=== PATIENT | male | born 1990 | race Two or more races ===

== ENCOUNTER 2023-12-04 16:31 | Inpatient (IN) | payer OTHER ==
[~2023-12-04] VITALS: Ht 182.9 cm; Wt 86.2 kg
[2023-12-04] MEDS ORDERED: RINGERS SOLUTION,LACTATED 1,000 ML IV STA (17:30)
[2023-12-04 17:53] LABS: HEMATOCRIT 43.4 % (39.0-48.0); HEMOGLOBIN 14.9 g/dL (13-16.00); MEAN CELL VOLUME 89.3 fL (80.0-100.00); MEAN CORPUSCULAR HEMOGLOBIN 30.6 pg (27.00-32.0); MEAN CORPUSCULAR HGB CONC 34.3 g/dl (32.0-36.0); PLATELET COUNT 257 K/uL (150-450); RED BLOOD COUNT 4.87 M/uL (4.00-6.00); RED CELL DISTRIBUTION WIDTH 13.3 % (11.5-14.5)
[2023-12-04 18:28] LABS: INR 1.03; PARTIAL THROMBOPLASTIN TIME 29.6 SECONDS (22.0-34.0); PROTHROMBIN TIME 10.8 SECONDS (9.0-11.5)
[2023-12-04 18:34] LABS: ALBUMIN 3.8 gm/dL (3.4-5.0); BILIRUBIN TOTAL 0.28 mg/dL (0.3-1.2); CALCIUM 9.3 mg/dL (8.5-10.1); GFR 85.03; GLOBULINA 3.6 G/DL (2.4-3.5); POTASSIUM 3.96 mEq/L (3.5-5.1); TOTAL PROTEIN 7.4 gm/dL (6.4-8.2)
[2023-12-04] MEDS ORDERED: 0.9 % SODIUM CHLORIDE 1,000 ML IV SCH (18:45)
[2023-12-04] MEDS ORDERED: PIPERACILLIN/TAZOBACTAM SODIUM 3.375 GM in DEXTROSE 5 % IN WATER 100 ML IV SCH (18:51)
[2023-12-04] MEDS ORDERED: FAMOTIDINE/PF 20 MG in 0.9 % SODIUM CHLORIDE 8 ML IV PUSH SCH (18:52)
[2023-12-04] MEDS ORDERED: VANCOMYCIN HCL 1,000 MG VIAL IV SCH (18:52)
[2023-12-04] MEDS ORDERED: ACETAMINOPHEN 500 MG GEL..CAP PO PRN (19:00)
[2023-12-04] MEDS ORDERED: VANCOMYCIN HCL 1,000 MG VIAL ONE (19:00)
[2023-12-04] MEDS ORDERED: FAMOtidine 200mg/20ml VIAL ONE (19:00)
[2023-12-04] MEDS ORDERED: PIPERACILLIN/TAZOBACTAM SODIUM 3.375 GM VIAL IV ONE (19:00)
[2023-12-04] MEDS ORDERED: ONDANSETRON HCL 4 MG in 0.9 % SODIUM CHLORIDE 50 ML IV PRN (19:00)
[2023-12-05] MEDS ORDERED: FAMOTIDINE/PF 20 MG/2 ML VIAL ONE (08:20)
[2023-12-05] MEDS ORDERED: SODIUM HYPOCHLORITE 1OZ TOP SCH (09:00)
[2023-12-05 16:03] LABS: PH,URINE 7.5 (5.0-8.0); URINE APPEARANCE Clear; URINE BILIRRUBIN Negative (NEGATIVE); URINE BLOOD Negative; URINE COLOR Yellow; URINE GLUCOSE Negative (NEGATIVE); URINE KETONE Negative (NEGATIVE); URINE LEUKOCYTE Negative; URINE NITRATE Negative; URINE PROTEIN Negative (NEGATIVE); URINE RBC 3.9 uL (0.0-20.8); URINE WBC 7.4 uL (0.0-23.2)
[2023-12-05 16:08] LABS: URINE BACTERIA 3.7 uL (0.0-1933)
[2023-12-05] MEDS ORDERED: FAMOTIDINE/PF 20 MG in 0.9 % SODIUM CHLORIDE 8 ML IV PUSH SCH (21:00)
[2023-12-06] MEDS ORDERED: SODIUM HYPOCHLORITE 1OZ TOP SCH (09:00)
== END 2023-12-05 20:30 | disposition left against medical advice (07) | DRG 594 ==
LOC: ER 16:32 → MEDJ 19:14
PROVIDERS: ADMIT Internal Medicine; ATTEND Internal Medicine
DX: L89.893 Pressure ulcer of other site, stage 3 (principal); F10.21 Alcohol dependence, in remission; F12.21 Cannabis dependence, in remission; Z53.29 Procedure and treatment not carried out because of patient's decision for other reasons; Z20.822 Contact with and (suspected) exposure to COVID-19